=== PATIENT | female | born 1995 | race Caucasian/White ===

== ENCOUNTER 2025-09-19 17:16 | Emergency (ER) | payer MEDICAID, SELFPAY ==
--- NOTE | ~2025-09-19 | XR_ITS ---
EXAMINATION: XR forearm RT 2V, 09/19/2025 17:20 CDT HISTORY: PT FELL AND LANDED ON RT ARM COMPARISON: No comparisons available. Findings: No acute fracture or malalignment. No significant degenerative changes. Soft tissues unremarkable. Impression: No acute fracture or malalignment. Reviewed, dictated and finalized at location P. Impression: No acute fracture or malalignment.
[2025-09-19 17:17] VITALS: BP 115/74; PULSE 72; RESP 16; TEMP 37; O2SAT 96
--- NOTE | 2025-09-19 17:22 | ED.UPPEXIN ---
HPI - Extremity Injury (Upper) General Chief Complaint: Extremity Injury, Upper Stated Complaint: rt. arm pain due to fall Time Seen by Provider: 09/19/25 17:22 Source: patient Mode of arrival: ambulatory Limitations: no limitations History of Present Illness HPI narrative: 30 year old female presents to the Emergency Department complaining of right forearm injury and pain. Patient states she slipped on steps and fell striking ulnar aspect right forearm. Denies any other injury. MD complaint: injury to: right Onset (ago): minute(s) Other injuries: none Place: home Severity: mild Exacerbating factors: movement of extremity Context: fall Associated symptoms: denies other symptoms Related Data Allergies Allergy/AdvReac Type Severity Reaction Status Date / Time Penicillins Allergy Unknown Anaphylaxis Verified 09/19/25 17:19 Review of Systems Review of Systems: All systems reviewed & are unremarkable except as noted in HPI and below Constitutional: Constitutional: Reports as per HPI and Reports no additional constitutional complaints Eyes: Eyes: Reports as per HPI and Reports no additional eye complaints ENT: Reports system reviewed and no additional complaints, except as documented Cardiovascular: Cardiovascular: Reports as per HPI and Reports no additional cardiovascular complaints Respiratory: Respiratory: Reports as per HPI and Reports no additional respiratory complaints Gastrointestinal: Gastrointestinal: Reports as per HPI and Reports no additional gastrointestinal complaints Genitourinary: Genitourinary: Reports no additional female genitourinary complaints and Reports as per HPI Musculoskeletal: Musculoskeletal: Reports no additional musculoskeletal complaints Comments: tender right forearm Integumentary/Breasts: Skin/Breast: Reports system reviewed and no additional complaints, except as docu and Reports as per HPI Neurologic: Reports system reviewed and no additional complaints, except as documented and Denies numbness Psychiatric: Psychiatric: Reports no additional psychiatric complaints Endocrine: Endocrine: Reports no additional endocrine complaints Hematologic/Lymphatic: Hematologic/Lymphatic: Reports no additional hematologic/lymphatic complaints Allergic/Immunologic: Allergic/Immunologic: Reports no additional allergic/immunologic complaints Exam Const: General: healthy appearing Nutritional Appearance: well nourished Orientation/consciousness: patient oriented x3 Limitations: no limitations HENMT: Head: normal to inspection Ears: external ears normal Face/Nose/Sinus: Normal external nose present Face and sinus: normal facial exam Other: non-tender Eyes: Pupils: Equal, round and reactive pupils present EOM: EOMs intact bilaterally Direct Ophthalmoscopy: no photophobia Neck: Neck: normal visual inspection Other: non-tender Chest: Chest palpation & inspection: normal inspection of the chest and no tenderness Resp: Effort & Inspection: normal respiratory effort Cardio: Rate: regular rate Other: pulses normal GI: Inspection: non-distended GI Palp: No Tenderness to palpation present (GI) Back/Spine/Pelvis: Back: no CVA tenderness Skin: General skin exam: normal color Rashes: no rashes Wounds: no wounds Neuro: General: patient oriented x3 Other: grossly normal Extrem: Other: tender to palpation ulnar aspect mid left forearm, slight swelling centrally, distal NV intact Psych: Mental Status: mental status grossly normal Course Course Emergency Course: 30 y/o female presents to the ED stating she slipped on her steps at home and struck right forearm ulnar aspect. Denies any other injury. PE: tender to palpation ulnar aspect mid right forearm XR R Forearm: unremarkable Tx: Tylenol 650 mg po *reviewed and discussed results with patient. Discussed further management. Patient voices understanding and agreement. Instructions Vital Signs Vital signs: Vital Signs Temperature 37.0 C 09/19/25 17:17 Pulse Rate 72 09/19/25 17:17 Respiratory Rate 16 09/19/25 17:17 Blood Pressure 115/74 09/19/25 17:17 Pulse Oximetry 96 09/19/25 17:17 Oxygen Delivery Room Air 09/19/25 17:17 Temperature 37.0 C 09/19/25 17:17 Pulse Rate 72 09/19/25 17:17 Respiratory Rate 16 09/19/25 17:17 Blood Pressure 115/74 09/19/25 17:17 Pulse Oximetry 96 09/19/25 17:17 Oxygen Delivery Room Air 09/19/25 17:17 Discharge Plan Discharge Clinical Impression: Contusion of right forearm Patient Disposition: Home Condition: Stable Instructions: Contusion in Adults (ED) Additional Instructions: Ice and Elevate for swelling Tylenol, Ibuprofen and Aleve as needed Follow up Primary Care Provider Patient Language: Mongolian Follow-up/Referrals: Erica Munoz MD [Primary Care Provider, Family Practice] Time of Disposition: 17:49
[2025-09-19] MEDS: ACETAMINOPHEN 325 MG TABLET 650 MG PO (17:53)
--- OUTSIDE RECORDS SUMMARY | 2025-09-19 20:23 | XMS_ITS | Encounter Summary ---
Author Organization [facility] Address [facility] [place] [address] Care Team Providers Care Diesel Pile Hammer Operator Name Role Phone None, Provider Primary Care Provider Rajiv Vogel MD Primary Care Provider [phone] Robbie Hay MD Primary Care Provider [phone] Erica Munoz MD Primary Care Provider [phone] Encounter Details Date Type Department Care Team (Late st Contact Info) Description 05/06/2019 Abstract [facility] CONVERSION [address] [place] [address] , Generic Conversion, Social History Tobacco Use Types Packs/Day Years Used Date Smoking Tobacco: Never Assessed Comments Unknown Sex and Gender Information Value Date Recorded Sex Assigned at Female 06/22/2025 11:15 AM CDT Legal Sex Female 7:03 PM CDT Gender Identity Not on file Sexual Orientation Straight 06/22/2025 11 :15 AM CDT documented as of this encounter Plan of Treatment Not on file documented as of this encounter Visit Diagnoses Not on filedocumented in this encounter Care Teams Diesel Pile Hammer Operator Relationship Specialty Start Date End Date None, Provider, PCP - General 10/25/19 11/02/19 Rajiv Wing MD [address] [place] [id number] PCP - General FAMILY PRACTICE 11/03/19 08/13/25 Robbie Hay MD [address] [place] [id number] PCP - General FAMILY PRACTICE 08/14/25 08/14/25 Erica Munoz MD [address] [place] [address] [place] [address] PCP - General FAMILY PRACTICE 08/15/25 documented as of this encounter
--- OUTSIDE RECORDS SUMMARY | 2025-09-19 20:23 | XMS_ITS | Clinical Summary ---
Author Organization [facility] Address [facility] [place] [address] Care Team Providers Care Tax Examiner Name Role Phone Erica Munoz MD Primary Care Provider [phone] Allergies Active Allergy Reactions Criticality Noted Date Comments Penicillins Swelling 10/10/2022 Swelling in throat Medications busPIRone (BUSPAR) 10 MG tablet Take 1 tablet (10 mg total) by mouth 2 (two) times daily. Active FLUoxetine (PROZAC) 20 MG capsule Take 3 capsules (60 mg total) by mouth daily. Active vitamin ( PLUS) 27-1 MG tablet Take 1 tablet by mouth daily. Active Active Problems Problem Noted Date Diagnosed Date Normal labor and delivery 08/14/2025 Resolved Problems Problem Noted Date Diagnosed Date Resolved Date Encounter for induction of labor 10/10/2022 08/15/2025 Encounters Date Type Department Care Team Description 08/17/2025 10:00 AM CDT - 08/17/2025 11:59 PM CDT [facility] [address] [place] [address] [place] [address] Erica Munoz MD Discharge Disposition: Home or Self Care (Routine Discharge) 08/17/2025 Travel 08/14/2025 12:57 PM CDT - 08/15/2025 3:17 PM CDT Hospital En[facility] [address] [place] [address] Erica Munoz MD Wujek, Daniel A, MD Contractions Discharge Disposition: Home or Self Care (Routine Discharge) 08/14/2025 Travel 07/09/2025 1:25 PM CDT - 07/09/2025 5:30 PM CDT Hospital [facility] [address] [place] [address] Erica Munoz MD Discharge Disposition: Home or Self Care (Routine Discharge) from Last 3 Months Immunizations Immunization Administration Dates Next Due Tdap (Boostrix) 08/15/2025,10/12/2022 Family History Medical History Relation Comments No Known Problems Brother 1 No Known Problems Brother 2 No Known Problems Father No Known Problems Paternal Grandfather No Known Problems Paternal Grandmother Relation Status Comments Brother 1 Brother 2 Alive Father Maternal Grandfather Maternal Grandmother Mother Paternal Grandfather Paternal Grandmother Social History Tobacco Use Types Packs/Day Years Used Date Smoking Tobacco: Never Smokeless Tobacco: Never Tobacco Cessation:Counseling Given: Not Answered Alcohol Use Standard Drinks/Week Comments Never 0 (1 standard drink = 0.6 oz pur e alcohol) [id number] Health Literacy Answer Date Recor ded How often do you need to hav e someone help you when you read instructions, pamphlets, or other written material from your doctor or pharmacy? Never 08/15/2025 [facility] [employer] Answer Date Recorded In the past 12 months has [employer], gas, oil, or water [facility] threatened to shut off services in your home? No 08/15/2025 Humiliation, Afraid, Rape, and Kick questionnair e Answer Date Recorded Within the last year, have y ou been afraid of your partner or ex-partner? No 08/15/2025 Within the last year, have y ou been humiliated or emotionally abused in other ways by your partner or ex-partner? No Within the last year, have y ou been kicked, hit, slapped, or otherwise physically hurt by your partner or ex-partner? No 08/15/2025 Within the last year, have y ou been raped or forced to have any kind of sexual activity by your partner or ex-partner? No 08/15/2025 Social Connection and Isolation Panel Answer Date Recorded In a typical week, how many times do you talk on the phone with family, friends, or neighbors? Once a week 08/15/2025 How often do you get togethe r with friends or relatives? More than three times a week 08/15/2025 How often do you attend chur ch or druze services? Never 08/15/2025 Do you belong to any clubs o r organizations such as taoist groups, unions, fraternal or athletic groups, or school groups? No 08/15/2025 How often do you attend meet ings of the clubs or organizations you belong to? Never 08/15/2025 Are you , , di vorced, , never , or living with a partner? Living with partner 08/15/2025 AUDIT-C Answer Date Recorded Q1: How often do you have a drink containing alc ohol? Monthly or less 08/15/2025 Q2: How many drinks containi ng alcohol do you have on a typical day when you are drinking? 1 or 2 08/15/2025 Q3: How often do you have si x or more drinks on one occasion? Never 08/15/2025 Overall Financial Resource Strain (CARDIA) Answe r Date Recorded How hard is it for you to pa y for the very basics like food, housing, medical care, and heating? Not hard at all 08/15/2025 [facility] - Occupational Stress Questionnaire Answer Date Recorded Do you feel stress - tense, restless, nervous, or anxious, or unable to sleep at night because your mind is troubled all the time - these days? Not at all 08/15/2025 Exercise Vital Sign Answer Date Recorde d On average, how many days pe r week do you engage in moderate to strenuous exercise (like a brisk walk)? 7 days 08/15/2025 On average, how many minutes do you engage in exercise at this level? 60 min 08/15/2025 Hunger Vital Sign Answer Date Recorded Within the past 12 months, y ou worried that your food would run out before you got the money to buy more. Never true 08/15/20 25 Within the past 12 months, t he food you bought just didn't last and you didn't have money to get more. Never true 08/15/2025 PRAPARE - Transportation Answer Date Re corded In the past 12 months, has l ack of transportation kept you from medical appointments or from getting medications? No 07/30 In the past 12 months, has l ack of transportation kept you from meetings, work, or from getting things needed for daily living? No 08/15/2025 Housing Stability Vital Sign Answer Wyatt e Recorded In the last 12 months, was t here a time when you were not able to pay the mortgage or rent on time? No 10/10/2022 In the last 12 months, how many places have you lived? 1 10/10/2022 In the last 12 months, was t here a time when you did not have a steady place to sleep or slept in a penitentiary (including now)? No 10/10/2022 Housing Stability Vital Sign Answer Wyatt e Recorded In the last 12 months, was t here a time when you were not able to pay the mortgage or rent on time? No 08/15/2025 In the past 12 months, how m any times have you moved where you were living? 0 08/15/2025 At any time in the past 12 m [facility], were you homeless or living in a penitentiary (including now)? No 08/15/2025 Depression Answer Date Recor ded Last EPDS Total Score 1 08/15/2025 Last EPDS Self Harm Result Hardly ever 08/15 Comments No Sex and Gender Information Value Date Recorded Sex Assigned at Female 06/22/2025 11:15 AM CDT Legal Sex Female 7:03 PM CDT Gender Identity Not on file Sexual Orientation Straight 06/22/2025 11 :15 AM CDT Last Filed Vital Signs Vital Sign Reading Time Taken Comments Blood Pressure 106/57 08/17/2025 10:30 AM CDT Pulse 70 08/17/2025 10:30 AM CDT Temperature 36.8 C (98.2 F) 08/17/2025 10:30 AM CDT Respiratory Rate 18 08/17/2025 10:30 AM CDT Oxygen Saturation 98% 08/17/2025 10:30 AM CDT Inhaled Oxygen Concentration - - Weight 89.4 kg (197 lb) 04/28/2025 10:01 PM CDT Height 152.4 cm (5') 04/28/2025 10:01 PM CDT Body Mass Index 38.47 04/28/2025 10:01 PM CDT Plan of Treatment Health Maintenance Due Date Last Done Comments Cervical Cancer Screening Pa p Smear (Age 30 to 64) Every 3 Years 1994 Annual Physical 1997 Hepatitis B Vaccines (1 of 3 - 19+ 3-dose series) 2013 HPV Vaccines (1 - 3-dose SCD M series) 2021 Cervical Cancer Screening Pa p with HPV Testing (Age 30 to 64) Every 5 Years 2024 Cervical Cancer Screening wi th HPV 2024 COVID-19 Vaccine (1 - 2024-2 6 season) 2025 Influenza Adult (#1) 2025 DTaP, Tdap and Td Vaccines ( 3 - Td or Tdap) 08/15/2035 08/15/2025, 10/12/2022 Hepatitis C Completed 01/23/2025 Hepatitis A Vaccines Aged Out No long er eligible based on patient's age to complete this topic Meningococcal B Vaccine Aged Out No l onger eligible based on patient's age to complete this topic Meningococcal Vaccine Aged Out No joe noel eligible based on patient's age to complete this topic Pneumococcal Vaccine: Pediatrics (0 to 5 Years) and At-Risk Patients (6 to 49 Years) Aged Out No longer eligible b ased on patient's age to complete this topic RSV Immunizations Under 20 Months Aged Out No longer eligible b ased on patient's age to complete this topic Procedures Procedure Name Priority Date/Time Associated Diagnosis Comments HEMOGLOBIN AND HEMATOCRIT Routine 08/15/2025 10:41 AM CDT TYPE & SCREEN Routine 08/14/2025 1:20 PM CDT SYPHILIS AB (DIAGNOSTIC) WITH CASCADING REFLEX STAT 08/14/2025 1:20 PM CDT Normal labor and delivery ([facility]/HCC) CBC W/DIFF AUTOMATED STAT 08/14/2025 1:20 PM CDT Normal labor and delivery ([facility]/HCC) DRUG SCREEN RAPID Routine 08/14/2025 1:0 0 PM CDT HC URINALYSIS AUTO W/MICRO STAT 08/14/2025 1:00 PM CDT GROUP B STREP MOLECULAR Routine 08/09/2025 HEPATITIS C ANTIBODY Routine 01/23/2025 from Last 3 Months or Most Recently Relevant to Health Maintenance Results * (ABNORMAL) HEMOGLOBIN AND HEMATOCRIT (08/15/2025 10:41 AM CDT) HGB 10.9(L) 12.0 - 16.0 G/DL 08/15/2025 10:47 AM CDT [facility] HCT 32.8(L) 36.0 - 47.0 % 08/15/2025 10:47 AM CDT [facility] 08/15/2025 10:4 1 AM CDT Erica Munoz MD LABORATORY Final Result Performing Organization Address City/[facility]/ZIP Co de Phone Number [facility] [address] [place] [address], * SYPHILIS IGG/IGM AB (08/14/2025 1:20 PM CDT) Pathologist [facility] SYPHILIS IGG IGM AB NON-REACTI VE NON-REACTI VE 08/14/2025 6:49 PM CDT [facility] Comment: No serologic evidence of syphilis. No follow-up necessary unless clinically indicated. 08/14/2025 1:20 PM CDT Je Marino MD LABORATORY Final Result [facility] [address] [place] [address], [place] [phone] [id number] * TYPE & SCREEN (08/14/2025 1:20 PM CDT) ABO/RH B POSITIVE 08/14/2025 2:18 PM CDT [facility] ANTIBODY SCREEN NEGATIVE 08/14/2025 2:18 PM CDT [facility] SAMPLE EXPIRATION 08/17/2025,2 359 08/14/2025 2:18 PM CDT [facility] 08/14/2025 1:20 PM CDT Je Marino MD BLOOD BANK TEST ORDERABLES Fi nal Result [facility] [address] [place] [address], * (ABNORMAL) CBC W/DIFF AUTOMATED (08/14/2025 1:20 PM CDT) WBC 10.97(H) 4.00 - 10.80 x10'3/uL 08/14/2025 1:27 PM CDT [facility] RBC 4.39 4.10 - 5.40 x10'6/uL 08/14/2025 1:27 PM CDT [facility] HGB 12.2 12.0 - 16.0 G/DL 08/14/2025 1:27 PM CDT [facility] HCT 36.8 36.0 - 47.0 % 08/14/2025 1:27 PM CDT [facility] MCV 83.8 78.0 - 100.0 FL 08/14/2025 1:27 PM CDT [facility] MCH 27.8 27.0 - 31.0 PG 08/14/2025 1:27 PM CDT [facility] MCHC 33.2 33.0 - 36.0 G/DL 08/14/2025 1:27 PM CDT [facility] RDW 13.1 11.5 - 14.5 % 08/14/2025 1:27 PM CDT [facility] PLT 261 150 - 350 x10'3/uL 08/14/2025 1:27 PM CDT [facility] MPV 10.9(H) 7.4 - 10.4 FL 08/14/2025 1:27 PM CDT [facility] CBC COMMENT NORMAL REFERENCE RANGE NOT ESTABLISHED FOR THE PROPORTIONAL LEUKOCYTE DIFFERENTIAL. 08/14/2025 1:27 PM CDT [facility] NEUTROPHILS % 77.7 % 08/14/2025 1:27 PM CDT [facility] LYMPHOCYTES % 15.7 % 08/14/2025 1:27 PM CDT [facility] MONOCYTES % 5.5 % 08/14/2025 1:27 PM CDT [facility] EOSINOPHILS % 0.4 % 08/14/2025 1:27 PM CDT [facility] BASOPHILS % 0.2 % 08/14/2025 1:27 PM CDT [facility] IMMATURE GRANS % 0.5 % 08/14/20 1:27 PM CDT [facility] NRBC % 0.0 % 08/14/2025 1:27 PM CDT [facility] ABS. NEUTROPHILS 8.53(H) 1.60 - 8.30 x10'3/uL 08/14/2025 1:27 PM CDT [facility] ABS. LYMPHOCYTES 1.72 0.80 - 4.70 x10'3/uL 08/14/2025 1:27 PM CDT [facility] ABS. MONOCYTES 0.60 0.00 - 1.50 x10'3/uL 08/14/2025 1:27 PM CDT [facility] ABS. EOSINOPHILS 0.04 0.00 - 0.40 x10'3/uL 08/14/2025 1:27 PM CDT [facility] ABS. BASOPHILS 0.02 0.00 - 0.20 x10'3/uL 08/14/2025 1:27 PM CDT [facility] ABS. IMMATURE GRANULOCYTES 0.06(H) 0.00 - 0.03 x10'3/uL 08/14/2025 1:27 PM CDT [facility] ABS. NUCLEATED RBC'S 0.00 0.00 - 0.01 x10'3/uL 08/14/2025 1:27 PM CDT [facility] 08/14/2025 1:20 PM CDT us Je Marino MD LABORATORY Final Result [facility] [address] [place] [address], * (ABNORMAL) DRUG SCREEN RAPID (08/14/2025 1:00 PM CDT) Pathologist [facility] CANNABINOIDS SCREEN (U) NEGATIVE NEGATIVE 08/14/2025 7:51 PM CDT [facility] PHENCYCLIDINE PCP (U) NEGATIVE NEGATIVE 08/14/2025 7:51 PM CDT [facility] COCAINE METABOLITES (U) NEGATIVE NEGATIVE 08/14/2025 7:51 PM CDT [facility] METHAMPHETAMINE SCREEN (U) NEGATIVE NEGATIVE 08/14/2025 7:51 PM CDT [facility] OPIATE SCREEN (U) NEGATIVE NEGATIVE 025 7:51 PM CDT [facility] AMPHETAMINE SCREEN (U) NEGATIVE NEGATIVE 08/14/2025 7:51 PM CDT [facility] BENZODIAZEPINES SCREEN (U) POSITIVE(A) NEGATIVE 08/14/2025 7:51 PM CDT [facility] TRICYCLIC ANTIDEPRESSANT SCREEN (U) NEGATIVE NEGATIVE 08/14/2025 7:51 PM CDT [facility] METHADONE (U) NEGATIVE NEGATIVE 08/14/2025 7:51 PM CDT [facility] BARBITURATES SCREEN (U) NEGATIVE NEGATIVE 08/14/2025 7:51 PM CDT [facility] OXYCODONE SCREEN (U) NEGATIVE NEGATIVE 08/14/2025 7:51 PM CDT [facility] URINE TOX COMMENT THIS TEST METHODOLOGY IS DESIGNED AND OFFERED A RAPID TURNAROUND, QUALITATIVE SCREENING PROCEDURE TO AID IN THE IMMEDIATE MEDICAL ASSESSMENT OF PATIENTS SUSPECTED OF SUBSTANCE ABUSE. 08/14/2025 7:31 PM CDT [facility] Comment: CLINICAL CONSIDERATION AND PROFESSIONAL JUDGMENT MUST BE APPLIED TO ANY DRUG OF ABUSE TEST RESULT, BOTH POSITIVE AND NEGATIVE. CONFIRMATORY QUANTITATIVE RESULTS ARE AVAILABLE THROUGH OUR [facility]. URINE SPECIMEN / Unknown 08/14/2025 1:00 PM CDT us Erica Munoz MD URINE ORDERABLES Final Result [facility] [address] [place] [address], * (ABNORMAL) URINALYSIS (08/14/2025 1:00 PM CDT) COLOR (U) YELLOW 08/14/2025 5:09 PM CDT [facility] TRANSPARENCY CLEAR 08/14/2025 5:09 PM CDT [facility] SPECIFIC GRAVITY (U) 1.025 1.000 - 1.025 08/14/2025 5:09 PM CDT [facility] U PH 6.5 5.0 - 8.0 08/14/2025 5:09 PM CDT [facility] LEUKOCYTES (U) 1+(A) NEGATIVE 08/14/2025 5:09 PM CDT [facility] NITRITES NEGATIVE NEGATIVE 08/14/2025 5:09 PM CDT [facility] PROTEIN RANDOM (U) 1+(A) NEGATIVE 08/14/2025 5:09 PM CDT [facility] GLUCOSE (U) NEGATIVE NEGATIVE 08/14/2025 5:09 PM CDT [facility] KETONES MG/DL (U) TRACE(A) NEGATIVE 08/14/2025 5:09 PM CDT [facility] UROBILINOGEN 0.2 <1.0 EU/DL 08/14/2025 5:09 PM CDT [facility] BILIRUBIN (U) NEGATIVE NEGATIVE 08/14/2025 5:09 PM CDT [facility] BLOOD (U) 1+(A) NEGATIVE 08/14/2025 5:09 PM CDT [facility] WBC/HPF 0-5 0 - 5 /HPF 08/14/2025 5:09 PM CDT [facility] RBC/HPF 0-5 0 - 5 /HPF 08/14/2025 5:09 PM CDT [facility] EPI/LPF OCCASIONAL /LPF 08/14/2025 5:09 PM CDT [facility] BACTERIA (U) 1+ /HPF 08/14/2025 5:09 PM CDT [facility] AMORPHOUS SEDIMENT PRESENT 08/14/2025 5:09 PM CDT [facility] URINE SPECIMEN OBTAINED BY CLEAN CATCH PROCEDURE / Unknown 08/14/2025 1:00 PM CDT us Je Marino MD URINE ORDERABLES Final Result [facility] [address] [place] [address], * GROUP B STREP MOLECULAR (08/09/2025) GROUP B STREP DNA neg ANOVAGINAL us Default History Genericprovider MICROBIOLOGY - G ENERAL ORDERABLES Final Result * HEPATITIS C ANTIBODY (01/23/2025) HEPATITIS C AB neg us Default History Genericprovider LABORATORY Final Result from Last 3 Months or Most Recently Relevant to Health Maintenance Insurance MEDICAID Advance Directives * Full Code (Latest Code Status on File) Date Activated Date Inactivated Comments 08/14/2025 1:03 PM 08/15/2025 6:45 PM * Full Code Date Activated Date Inactivated Comments 08/14/2025 1:03 PM 08/14/2025 1:03 PM * Full Code Date Activated Date Inactivated Comments 10/10/2022 4:24 PM 10/11/2022 3:41 PM Care Teams Tax Examiner Relationship Specialty Start Date End Date Erica Munoz MD [address] [place] [id number] PCP - General FAMILY PRACTICE 08/15/25
== END 2025-09-19 18:11 | disposition home or self-care (01) ==
LOC: CHSED 17:56
PROVIDERS: Emergency Provider Emergency Medicine; PCP Family Medicine
DX: S50.11XA Contusion of right forearm, initial encounter (principal); W01.0XXA Fall on same level from slipping, tripping and stumbling without subsequent striking against object, initial encounter
CPT/HCPCS: 73090; 99283; A9270